=== PATIENT | female | born 1980 | race Caucasian/White ===

== ENCOUNTER 2024-09-29 13:00 | Emergency (ER) | payer OTHER ==
[~2024-09-29] VITALS: Ht 162.6 cm; Wt 76.3 kg
[2024-09-29 13:52] LABS: BILIRUBIN, URINE NEGATIVE (negative); BLOOD/HGB, URINE NEGATIVE (Negative); KETONE, URINE NEGATIVE (Negative); LEUK ESTERASE, URINE NEGATIVE (negative); NITRITE, URINE NEGATIVE (negative); PH, URINE 5.5 (5-7)
[2024-09-29] MEDS ORDERED: TRAZODONE HCL150 MG PO (14:09)
[2024-09-29] MEDS ORDERED: ESTRACE2 MG PO (14:10)
[2024-09-29] MEDS ORDERED: ONDANSETRON ODT8 MG PO (14:10)
[2024-09-29] MEDS ORDERED: DULOXETINE HCL20 MG PO (14:11)
[2024-09-29] MEDS ORDERED: DULOXETINE HCL30 MG PO (14:11)
[2024-09-29] MEDS ORDERED: HYDROXYZINE HCL25 MG PO (14:12)
[2024-09-29] MEDS ORDERED: LEVOFLOXACIN500 MG PO (14:13)
[2024-09-29] MEDS ORDERED: AMOXICILLIN500 MG PO (14:13)
[2024-09-29] MEDS ORDERED: OMEPRAZOLE20 MG PO (14:14)
[2024-09-29] MEDS ORDERED: PRAZOSIN HCL5 MG PO (14:14)
[2024-09-29] MEDS ORDERED: CLOTRIMAZOLE-745 GM VAGINAL (14:19)
[2024-09-29] MEDS ORDERED: DIFLUCAN200 MG PO (14:19)
[2024-09-29 14:26] VITALS: BP 106/75
== END 2024-09-29 14:25 | disposition home or self-care (01) ==
LOC: ED 13:00
PROVIDERS: Emergency Medicine
DX: B37.31 Acute candidiasis of vulva and vagina (principal); Z88.5 Allergy status to narcotic agent; Z88.8 Allergy status to other drugs, medicaments and biological substances; Z79.899 Other long term (current) drug therapy
CPT/HCPCS: 81003; 99283

== ENCOUNTER 2025-01-15 17:48 | Emergency (ER) | payer OTHER ==
[~2025-01-15] VITALS: Ht 162.6 cm; Wt 70.7 kg
[~2025-01-15 17:48] MED LIST: AMOXICILLIN500 MG PO; CLOTRIMAZOLE-745 GM VAGINAL; DIFLUCAN200 MG PO; DULOXETINE HCL20 MG PO; DULOXETINE HCL30 MG PO; ESTRACE2 MG PO; HYDROXYZINE HCL25 MG PO; LEVOFLOXACIN500 MG PO; OMEPRAZOLE20 MG PO; ONDANSETRON ODT8 MG PO; PRAZOSIN HCL5 MG PO; TRAZODONE HCL150 MG PO
[2025-01-15] MEDS ORDERED: SUMAtriptan succinate 6 MG/0.5 ML VIAL SUB-Q ONE (20:15)
[2025-01-15] MEDS ORDERED: METOCLOPRAMIDE HCL 10 MG/2 ML SDV IV ONE (20:15)
[2025-01-15] MEDS ORDERED: diphenhydrAMINE HCL 50 MG/ML VIAL IV ONE ×2 (20:15→21:00)
[2025-01-15] MEDS ORDERED: KETOROLAC TROMETHAMINE 30 MG/ML VIAL IV ONE (20:15)
[2025-01-15 20:37] LABS: BASOPHILS 0.5 % (0-2); HEMATOCRIT 37.6 % (35.0-50.0); HEMOGLOBIN 12.9 g/dL (12.0-18.0); MCH 28.1 (27-36); MCHC 34.2 g/dl (30-36); MONOCYTES 6.9 % (0-12); NEUTROPHILS 52.6 % (39-80); PLATELET COUNT 264 K/uL (140-440); RBC 4.59 M/ul (4.3-5.7); RDW 14.7 (10.5-15.0)
[2025-01-15 20:50] LABS: ALBUMIN 3.5 g/dL (3.4-5.0); ALBUMIN/GLOBULIN RATIO 1.06 (1.1-2.4); ANION GAP 12.5 (7-21); BILIRUBIN, TOTAL 0.2 mg/dL (0.2-1.0); BUN/CREATININE RATIO 17.5 (6.0-28.6); CALCIUM 9.2 mg/dL (8.5-10.1); CREATININE, SERUM 0.8 mg/dL (0.55-1.02); MAGNESIUM 2.2 mg/dL (1.8-2.4); POTASSIUM 3.5 mmol/L (3.5-5.1); PROTEIN, TOTAL 6.8 g/dL (6.4-8.2)
[2025-01-15] MEDS ORDERED: ondansetron HCL 4 MG/2 ML VIAL IV ONE (21:00)
[2025-01-15] MEDS ORDERED: BUTALB-ACETAMI1 EACH PO (22:07)
[2025-01-15] MEDS ORDERED: ONDANSETRON ODT8 MG PO (22:07)
[2025-01-15] MEDS ORDERED: TRAMADOL HCL 50 MG HOME.PACK PO ONE (22:15)
[2025-01-15] MEDS ORDERED: ONDANSETRON 4 MG HOME.PACK SL ONE (22:15)
[2025-01-15 22:19] VITALS: BP 131/73
== END 2025-01-15 22:21 | disposition home or self-care (01) ==
LOC: ED 17:48
PROVIDERS: Family Medicine
DX: R51.9 Headache, unspecified (principal); Z88.5 Allergy status to narcotic agent; Z88.8 Allergy status to other drugs, medicaments and biological substances; Z79.899 Other long term (current) drug therapy
CPT/HCPCS: 36415; 70450; 80053; 83735; 85025; 96374; 96375; 99284-25; A9270; J1200; J1885; J2405; J2765; J3030

== ENCOUNTER 2025-07-10 11:36 | Emergency (ER) | payer OTHER ==
[~2025-07-10] VITALS: Ht 162.6 cm; Wt 74.0 kg
[~2025-07-10 11:36] MED LIST changes: +BUTALB-ACETAMI1 EACH PO
[2025-07-10 12:43] LABS: BLOOD/HGB, URINE NEGATIVE (Negative); KETONE, URINE NEGATIVE (Negative); LEUK ESTERASE, URINE NEGATIVE (negative); NITRITE, URINE NEGATIVE (negative)
[2025-07-10] MEDS ORDERED: ARIPIPRAZOLE2 MG PO (13:21)
[2025-07-10 14:59] LABS: BASOPHILS 0.2 % (0.1-1.2); EOSINOPHILS 1.5 % (0.7-5.8); LYMPHOCYTES 24.3 % (19.3-51.7); MCH 28.0 PG (25.6-32.2); MCHC 31.7 g/dL (32.2-35.5); MCV 88.5 fL (79.4-94.8); MONOCYTES 6.9 % (4.7-12.5); NEUTROPHILS 66.9 % (34.0-71.1); RBC 4.60 M/uL (3.93-5.22)
[2025-07-10] MEDS ORDERED: LIDOCAINE & ANTACID 35 ML BTL PO ONE (15:00)
[2025-07-10 15:09] LABS: INR 0.91 (0.80-1.30); PROTIME 11.9 Sec (11.2-14.2)
[2025-07-10 15:15] LABS: ALT (SGPT) 26.0 U/L (14-59); AST (SGOT) 18.0 U/L (15-37); GLOMERULAR FILTRATION RATE,EST 114.0 mL/min (>60); PROTEIN, TOTAL 7.5 g/dL (6.4-8.2); UREA NITROGEN 14.0 mg/dL (7-18)
[2025-07-10] MEDS ORDERED: KETOROLAC TROMETHAMINE 30 MG/ML VIAL IM ONE (15:15)
[2025-07-10] MEDS ORDERED: ONDANSETRON 4 MG TAB ODT SL ONE (16:30)
[2025-07-10] MEDS ORDERED: DICYCLOMINE HCL 10 MG CAP PO ONE (17:00)
[2025-07-10] MEDS ORDERED: DICYCLOMINE HCL20 MG PO (17:01)
[2025-07-10] MEDS ORDERED: ONDANSETRON ODT4 MG PO (17:01)
[2025-07-10 17:06] VITALS: BP 100/48
== END 2025-07-10 17:06 | disposition home or self-care (01) ==
LOC: ED 11:36
PROVIDERS: Emergency Medicine
DX: R10.33 Periumbilical pain (principal); Z88.5 Allergy status to narcotic agent; Z79.899 Other long term (current) drug therapy
CPT/HCPCS: 36415; 74176; 80053; 81003; 83690; 85025; 85610; 96372; 99284-25; A9270; J1885